=== PATIENT | male | born 1975 | race African-American/Black ===

== ENCOUNTER 2019-04-16 16:28 | Emergency (ER) | payer OTHER ==
[~2019-04-16] VITALS: Ht 182.9 cm; Wt 83.5 kg
[2019-04-16 16:40] VITALS: Ht 182.9 cm; Wt 83.5 kg
[2019-04-16 17:04] LABS: BASOPHIL % 0.3 % (0-2); PLATELET COUNT 175 x10^3mcL (130-400)
[2019-04-16 17:05] LABS: RED CELL DISTRIBUTION WIDTH 15.2 % (11.5-14.5)
[2019-04-16 17:25] LABS: CALCIUM 9.2 mg/dL (8.5-10.1); CARBON DIOXIDE 20.9 mmol/L (21-32); CHLORIDE SERUM 104 mmol/L (98-107); CREATININE SERUM 1.3 mg/dL (0.7-1.3); GFR1 > 60 mL/min; GLUCOSE SERUM 118 mg/dL (74-106); POTASSIUM SERUM 3.7 mmol/L (3.5-5.1); SODIUM SERUM 140 mmol/L (136-145)
[2019-04-16 17:30] LABS: ALBUMIN 3.8 g/dL (3.4-5.0); ALKALINE PHOSPHATASE 87 U/L (46-116); ALT/SGPT 104 U/L (16-63); AST/SGOT 55 U/L (15-37); BILIRUBIN TOTAL 0.47 mg/dL (0.20-1.00); TOTAL PROTEIN, SERUM 7.6 g/dL (6.4-8.2)
[2019-04-16 19:18] VITALS: BP 135/90
== END 2019-04-16 19:18 | disposition home or self-care (01) ==
LOC: ED 16:28
PROVIDERS: Emergency Medicine
DX: S80.12XA Contusion of left lower leg, initial encounter (principal); J45.909 Unspecified asthma, uncomplicated; H40.9 Unspecified glaucoma; X58.XXXA Exposure to other specified factors, initial encounter; Y93.89 Activity, other specified; Y92.89 Other specified places as the place of occurrence of the external cause; Y99.8 Other external cause status
CPT/HCPCS: 36415; 83880; Q0092

== ENCOUNTER 2019-04-25 00:55 | Emergency (ER) | payer OTHER ==
[~2019-04-25] VITALS: Ht 182.9 cm; Wt 84.4 kg
[2019-04-25 01:02] VITALS: Ht 182.9 cm; Wt 84.4 kg
[2019-04-25 03:06] LABS: BASOPHIL % 0.5 % (0-2); PLATELET COUNT 192 x10^3mcL (130-400)
[2019-04-25 03:08] LABS: RED CELL DISTRIBUTION WIDTH 15.8 % (11.5-14.5)
[2019-04-25 03:26] LABS: CALCIUM 8.6 mg/dL (8.5-10.1); CARBON DIOXIDE 24.5 mmol/L (21-32); CHLORIDE SERUM 109 mmol/L (98-107); CREATININE SERUM 1.1 mg/dL (0.7-1.3); GFR1 > 60 mL/min; GLUCOSE SERUM 111 mg/dL (74-106); POTASSIUM SERUM 3.7 mmol/L (3.5-5.1); SODIUM SERUM 145 mmol/L (136-145)
[2019-04-25 03:33] LABS: ALBUMIN 3.7 g/dL (3.4-5.0); ALKALINE PHOSPHATASE 72 U/L (46-116); ALT/SGPT 64 U/L (16-63); AST/SGOT 37 U/L (15-37); BILIRUBIN TOTAL 0.5 mg/dL (0.20-1.00); TOTAL PROTEIN, SERUM 7.1 g/dL (6.4-8.2)
[2019-04-25 05:44] VITALS: BP 125/82
== END 2019-04-25 05:44 | disposition home or self-care (01) ==
LOC: ED 00:55
PROVIDERS: Emergency Medicine
DX: M79.605 Pain in left leg (principal); J45.909 Unspecified asthma, uncomplicated
CPT/HCPCS: 36415; J1885; Q0092

== ENCOUNTER 2019-11-15 12:05 | Emergency (ER) | payer OTHER ==
[~2019-11-15] VITALS: Ht 182.9 cm; Wt 85.7 kg
[2019-11-15 12:09] VITALS: Ht 182.9 cm; Wt 85.7 kg
[2019-11-15 12:23] LABS: BASOPHIL % 0.2 % (0-2); PLATELET COUNT 163 x10^3mcL (130-400); RED CELL DISTRIBUTION WIDTH 14.7 % (11.5-14.5)
[2019-11-15 12:46] LABS: CALCIUM 8.9 mg/dL (8.5-10.1); CARBON DIOXIDE 26.5 mmol/L (21-32); CHLORIDE SERUM 105 mmol/L (98-107); CREATININE SERUM 0.9 mg/dL (0.7-1.3); GFR1 > 60 mL/min; GLUCOSE SERUM 107 mg/dL (74-106); POTASSIUM SERUM 4.2 mmol/L (3.5-5.1); SODIUM SERUM 141 mmol/L (136-145)
[2019-11-15 12:48] LABS: ALBUMIN 3.9 g/dL (3.4-5.0); ALKALINE PHOSPHATASE 93 U/L (46-116); ALT/SGPT 74 U/L (16-63); AST/SGOT 35 U/L (15-37); BILIRUBIN TOTAL 0.6 mg/dL (0.20-1.00)
[2019-11-15 14:30] VITALS: BP 127/87
== END 2019-11-15 14:30 | disposition home or self-care (01) ==
LOC: ED 12:05
DX: R07.89 Other chest pain (principal); J45.909 Unspecified asthma, uncomplicated; Z90.89 Acquired absence of other organs
CPT/HCPCS: 36415; J1885; J3010; Q0092; Q0162